=== PATIENT | male | born 1995 | race Caucasian/White ===

== ENCOUNTER 2017-11-18 22:08 | Emergency (ER) | payer OTHER ==
[2017-11-18] MEDS ORDERED: DIPHENHYDRAMINE 50 MG/ML VIAL ONE (23:10)
[2017-11-18] MEDS ORDERED: METOCLOPRAMIDE 10 MG/2mL INJ ONE (23:10)
[2017-11-18] MEDS ORDERED: NA CHLORIDE 0.9% 0 ML ONE (23:10)
[2017-11-18] MEDS ORDERED: KETOROLAC 30 MG/ML INJ ONE (23:10)
--- NOTE | 2017-11-19 00:35 | EDPHYS ---
Physician Documentation [facility] Name: Jamie Cortes Age: 22 yrs Sex: Male : 1995 Arrival Date: 11/18/2017 Time: 22:09 Bed 5 Private MD: Vinnie Casey ED Physician Ike Cordero HPI: 11/19 01:00 This 22 yrs old Male presents to ER via Ambulatory with complaints of pm1 Headache, Vomiting, SENSITIVE TO LIGHT AND SOUND. 01:00 The patient complains of pain to the forehead and left eye. The patient describes the pm1 headache as aching, constant. Onset: The symptoms/episode began/occurred 1 hour prior to arrival. Associated signs and symptoms: Pertinent positives: Photophobia vomiting, Pertinent negatives: dizziness, fever, rash, sinus congestion, sinus tenderness. Severity of symptoms: in the emergency department the pain is actually worse. Headache History: The patient has had previous headaches and this one is similar to previous episodes, and this one is more severe than previous episodes. The symptoms are alleviated by Darkened room, quiet, the symptoms are aggravated by lights, noise. The patient has experienced similar episodes in the past, a few times. The patient has not recently seen a physician. Historical: - Allergies: 11/18 22:29 No Known Allergies; lp1 - Home Meds: 22:29 None [Active]; lp1 - PMHx: 22:29 None; lp1 - PSHx: 22:29 Ear Tubes; lp1 - Immunization history:: Adult Immunizations up to date. - Social history:: Smoking status: Patient/guardian denies using tobacco. - Ebola Screening: : No symptoms or risks identified at this time. ROS: 11/19 01:00 Constitutional: Negative for fever, chills, and weight loss, Eyes: Negative for injury, pm1 pain, redness, and discharge, ENT: Negative for injury, pain, and discharge, Neck: Negative for injury, pain, and swelling, Cardiovascular: Negative for chest pain, palpitations, and edema, Respiratory: Negative for shortness of breath, cough, wheezing, and pleuritic chest pain, Abdomen/GI: Negative for abdominal pain, nausea, vomiting, diarrhea, and constipation, Back: Negative for injury and pain, : Negative for injury, bleeding, discharge, and swelling, MS/Extremity: Negative for injury and deformity, Skin: Negative for injury, rash, and discoloration. Neuro: Positive for headache, Negative for visual changes, weakness. Exam: 01:00 Constitutional: This is a well developed, well nourished patient who is awake, alert, pm1 and in no acute distress. Head/Face: Normocephalic, atraumatic. Eyes: Pupils equal round and reactive to light, extra-ocular motions intact. Lids and lashes normal. Conjunctiva and sclera are non-icteric and not injected. Cornea within normal limits. Periorbital areas with no swelling, redness, or edema. ENT: Nares patent. No nasal discharge, no septal abnormalities noted. Tympanic membranes are normal and external auditory canals are clear. Oropharynx with no redness, swelling, or masses, exudates, or evidence of obstruction, uvula midline. Mucous membranes moist. Neck: Trachea midline, no thyromegaly or masses palpated, and no cervical lymphadenopathy. Supple, full range of motion without nuchal rigidity, or vertebral point tenderness. No Meningismus. Chest/axilla: Normal chest wall appearance and motion. Nontender with no deformity. No lesions are appreciated. Cardiovascular: Regular rate and rhythm with a normal S1 and S2. No gallops, murmurs, or rubs. Normal PMI, no JVD. No pulse deficits. Respiratory: Lungs have equal breath sounds bilaterally, clear to auscultation and percussion. No rales, rhonchi or wheezes noted. No increased work of breathing, no retractions or nasal flaring. Abdomen/GI: Soft, non-tender, with normal bowel sounds. No distension or tympany. No guarding or rebound. No evidence of tenderness throughout. Back: No spinal tenderness. No costovertebral tenderness. Full range of motion. Skin: Warm, dry with normal turgor. Normal color with no rashes, no lesions, and no evidence of cellulitis. MS/ Extremity: Pulses equal, no cyanosis. Neurovascular intact. Full, normal range of motion. Neuro: Awake and alert, GCS 15, oriented to person, place, time, and situation. Cranial nerves II-XII grossly intact. Motor strength 5/5 in all extremities. Sensory grossly intact. Cerebellar exam normal. Normal gait. Vital Signs: 11/18 22:29 BP 136 / 106; Pulse 88; Resp 16; Temp 98.5(O); Pulse Ox 100% on R/A; Weight 81.65 kg; lp1 Height 5 ft. 8 in. (172.72 cm); Pain 8/10; 23:19 BP 123 / 83; Pulse 81; Resp 16; Pulse Ox 100% on R/A; Pain 1/10; lp1 11/19 00:30 BP 128 / 85; Pulse 85; Resp 16; Pulse Ox 99% on R/A; lp1 11/18 22:29 Body Mass Index 27.37 (81.65 kg, 172.72 cm) lp1 MDM: 11/18 22:59 Patient medically screened. pm1 11/19 00:00 ED course: Patient's headache completely resolved without medications. he refused pain pm1 medications. 00:34 ED course: CT head from V-rad: No acute findings.. pm1 00:34 Data reviewed: vital signs. Data interpreted: Pulse oximetry: on room air is 100 %. pm1 Interpretation: normal. Counseling: I had a detailed discussion with the patient and/or guardian regarding: the historical points, exam findings, and any diagnostic results supporting the discharge/admit diagnosis, radiology results, the need for outpatient follow up, to return to the emergency department if symptoms worsen or persist or if there are any questions or concerns that arise at home. 11/18 22:50 Order name: CT Head Brain wo Cont pm1 Administered Medications: 11/18 23:22 Not Given (Patient Refused): Benadryl 25 mg IVP once lp1 23:22 Not Given (Patient Refused): Reglan 10 mg IVP once; over 1 to 2 minutes lp1 23:22 Not Given (Patient Refused): TORadol 30 mg IVP once lp1 Disposition: 11/19 04:20 Co-signature as Attending Physician, Ike Cordero MD. rn Disposition: 11/19/17 00:35 Discharged to Home. Impression: Migraine. - Condition is Stable. - Discharge Instructions: Migraine Headache. - Work release form, Medication Reconciliation Form, Thank You Letter form. - Follow up: Emergency Department; When: As needed; Reason: Worsening of condition. Follow up: Private Physician; When: 2 - 3 days; Reason: Recheck today's complaints, Continuance of care, Re-evaluation by your physician. - Problem is new. - Symptoms have improved. Signatures: Dispatcher [employer] EDIke Engel MD MD rn BachSherin RN RN lp1 Timi Hurley, [employer] pm1 Corrections: (The following items were deleted from the chart) 11/18 23:22 23:00 IV Saline Lock ordered. pm1 lp1 11/19 00:35 00:35 11/19/2017 00:35 Discharged to Home. Impression: Headache. Condition is Stable. pm1 Forms are Medication Reconciliation Form, Thank You Letter, Antibiotic Education, Prescription Opioid Use. Follow up: Emergency Department; When: As needed; Reason: Worsening of condition. Follow up: Private Physician; When: 2 - 3 days; Reason: Recheck today's complaints, Continuance of care, Re-evaluation by your physician. Problem is new. Symptoms have improved. pm1 01:01 00:35 11/19/2017 00:35 Discharged to Home. Impression: Migraine. Condition is Stable. lp1 Discharge Instructions: Migraine Headache. Forms are Medication Reconciliation Form, Thank You Letter. Follow up: Emergency Department; When: As needed; Reason: Worsening of condition. Follow up: Private Physician; When: 2 - 3 days; Reason: Recheck today's complaints, Continuance of care, Re-evaluation by your physician. Problem is new. Symptoms have improved. pm1
--- NOTE | 2017-11-19 00:35 | ER ---
Nurse's Notes [facility] Name: Jamie Cortes Age: 22 yrs Sex: Male : 1995 Arrival Date: 11/18/2017 Time: 22:09 Bed 5 Private MD: Vinnie Casey Diagnosis: Migraine Presentation: 11/18 22:26 Presenting complaint: Patient states: Headache that began 1 hour ago, vomited x4-5, lp1 sensitivity to light and sound; Patient states numbness to left side of face on arrival to ED. Transition of care: patient was not received from another setting of care. Onset of symptoms was November 18, 2017 at 21:30. Risk Assessment: Do you want to hurt yourself or someone else? Patient reports no desire to harm self or others. Initial Sepsis Screen: Does the patient meet any 2 criteria? No. Patient's initial sepsis screen is negative. Does the patient have a suspected source of infection? No. Patient's initial sepsis screen is negative. Care prior to arrival: None. 22:26 Method Of Arrival: Ambulatory lp1 22:26 Acuity: DINA 3 lp1 Triage Assessment: 22:31 Headache History: The patient has had previous headaches and this one is more severe lp1 than previous episodes. 22:32 Pain: Also complains of nausea, photophobia, inability to work. lp1 Historical: - Allergies: 22:29 No Known Allergies; lp1 - Home Meds: 22:29 None [Active]; lp1 - PMHx: 22:29 None; lp1 - PSHx: 22:29 Ear Tubes; lp1 - Immunization history:: Adult Immunizations up to date. - Social history:: Smoking status: Patient/guardian denies using tobacco. - Ebola Screening: : No symptoms or risks identified at this time. Screenin:30 Abuse screen: Denies threats or abuse. Denies injuries from another. Nutritional lp1 screening: No deficits noted. Tuberculosis screening: No symptoms or risk factors identified. Fall Risk None identified. Assessment: 22:30 General: Appears uncomfortable, Behavior is appropriate for age. Pain: Complains of lp1 pain in head Pain currently is 8 out of 10 on a pain scale. Quality of pain is described as crushing, Pain began 1 hour ago. Neuro: Level of Consciousness is awake, alert, obeys commands, Oriented to person, place, time, situation, Gait is steady, Speech is normal, Facial symmetry appears normal, Pupils are PERRLA, Reports headache in left parietal area. Cardiovascular: Patient's skin is warm and dry. Respiratory: Respiratory effort is even, unlabored. GI: Reports nausea. : No signs and/or symptoms were reported regarding the genitourinary system. EENT: No signs and/or symptoms were reported regarding the EENT system. Derm: Skin is pink, warm \\T\\ dry. Musculoskeletal: Circulation, motion, and sensation intact. 23:18 Reassessment: On arrival into room, patient comfortable, denies pain, states "my lp1 headache is 98% gone"; Refusing IV meds and CT scan Patient denies pain at this time. Patient states feeling better. Patient states symptoms have improved. 23:21 Reassessment: Provider at bedside, patient agrees to do CT. lp1 11/19 00:30 Reassessment: Patient appears in no apparent distress at this time. Patient is alert, lp1 oriented x 3, equal unlabored respirations, skin warm/dry/pink. Patient denies pain at this time. Vital Signs: 11/18 22:29 BP 136 / 106; Pulse 88; Resp 16; Temp 98.5(O); Pulse Ox 100% on R/A; Weight 81.65 kg; lp1 Height 5 ft. 8 in. (172.72 cm); Pain 8/10; 23:19 BP 123 / 83; Pulse 81; Resp 16; Pulse Ox 100% on R/A; Pain 1/10; lp1 11/19 00:30 BP 128 / 85; Pulse 85; Resp 16; Pulse Ox 99% on R/A; lp1 11/18 22:29 Body Mass Index 27.37 (81.65 kg, 172.72 cm) lp1 ED Course: 11/18 22:09 Patient arrived in ED. es 22:14 Vinnie Casey MD is Private Physician. es 22:23 Timi Hurley NP is PHCP. pm1 22:23 Ike Cordero MD is Attending Physician. pm1 22:26 Sherin Bach, DOUGLAS is Primary Nurse. lp1 22:28 Triage completed. lp1 22:28 Arm band placed on left wrist. lp1 22:30 Patient has correct armband on for positive identification. Pulse ox on. NIBP on. lp1 23:19 No provider procedures requiring assistance completed. Patient did not have IV access lp1 during this emergency room visit. 23:37 CT Head Brain wo Cont In Process Unspecified. EDMS 23:[address] via wheelchair. kw1 Administered Medications: 23:22 Not Given (Patient Refused): Benadryl 25 mg IVP once lp1 23:22 Not Given (Patient Refused): Reglan 10 mg IVP once; over 1 to 2 minutes lp1 23:22 Not Given (Patient Refused): TORadol 30 mg IVP once lp1 Outcome: 11/19 00:35 Discharge ordered by MD. pm1 01:00 Discharged to home ambulatory, with family. lp1 01:00 Condition: good 01:00 Discharge instructions given to patient, Instructed on discharge instructions, follow up and referral plans. Demonstrated understanding of instructions, follow-up care. 01:01 Patient left the ED. lp1 Signatures: Dispatcher [employer] EDPattie Bob Laura RN RN lp1 Timi Hurley NP [employer] pm1 Elsie Dunn kw1 Corrections: (The following items were deleted from the chart) 11/18 23:17 23:[address] via wheelchair. kw1 kw1
--- NOTE | 2017-11-19 08:58 | RAD REPORT ---
EXAM DESCRIPTION: CT - Head Brain Wo Cont - 11/19/2017 3:59 am CLINICAL HISTORY: Headache, vomiting A preliminary written report was provided at the time of the study, and the report was reviewed prio r to final dictation. COMPARISON: None. TECHNIQUE: Axial 5 mm thick images of the head were obtained without IV contrast. All CT scans are performed using dose optimization technique as appropriate and may include automated exposure control or mA/KV adjustment according to patient size. FINDINGS: No intracranial hemorrhage, mass, edema or shift of mid-line structures. No acute infarcti on changes seen. No abnormal extra-axial fluid collections. Ventricles are normal. Mastoid air cells and visualized portions of the paranasal sinuses are clear. No acute bony findings. IMPRESSION: Negative non-contrast CT head examination.
== END 2017-11-19 01:01 | disposition home or self-care (01) ==
LOC: ER 22:08
DX: G43.909 Migraine, unspecified, not intractable, without status migrainosus (principal)
CPT/HCPCS: 70450; 99284; J2765; J7030

== ENCOUNTER 2019-04-20 07:28 | Emergency (ER) | payer OTHER ==
[2019-04-20] MEDS ORDERED: AZITHROMYCIN 250 MG TAB ONE (07:58)
[2019-04-20] MEDS ORDERED: dexAMETHasone 10 MG/ML VIAL ONE (07:58)
--- NOTE | 2019-04-20 08:03 | EDPHYS ---
Physician Documentation [facility] Name: Jamie Cortes Age: 24 yrs Sex: Male : 1995 Arrival Date: 04/20/2019 Time: 07:32 Bed 6 Private MD: ED Physician Mahendra Garcia HPI: 04/20 07:54 This 24 yrs old Male presents to ER via Ambulatory with complaints of jennifer Breathing Difficulty, Dizziness. 07:54 The patient has shortness of breath at rest, with light activity. Onset: The jennifer symptoms/episode began/occurred 2 day(s) ago. Duration: The symptoms are intermittent, with episodes lasting minutes at a time. The patient's shortness of breath is aggravated by coughing, SNORING. Associated signs and symptoms: The patient has no apparent associated signs or symptoms. Severity of symptoms: At their worst the symptoms were mild in the emergency department the symptoms are unchanged. The patient has not experienced similar symptoms in the past. Historical: - Allergies: 07:48 No Known Allergies; ss - Home Meds: 07:48 None [Active]; ss - PMHx: 07:48 Anxiety; ADD/ADHD; ss - PSHx: 07:48 Ear Tubes; ss - Immunization history:: Adult Immunizations up to date. - Social history:: Smoking status: Patient/guardian denies using tobacco. - Ebola Screening: : Patient denies exposure to infectious person Patient denies travel to an Ebola-affected area in the 21 days before illness onset. - Family history:: not pertinent. ROS: 07:54 Constitutional: Negative for fever, chills, and weight loss, Eyes: Negative for injury, jennifer pain, redness, and discharge, Neck: Negative for injury, pain, and swelling, Cardiovascular: Negative for chest pain, palpitations, and edema, Respiratory: Negative for shortness of breath, cough, wheezing, and pleuritic chest pain, Abdomen/GI: Negative for abdominal pain, nausea, vomiting, diarrhea, and constipation, Back: Negative for injury and pain, : Negative for injury, bleeding, discharge, and swelling, MS/Extremity: Negative for injury and deformity, Skin: Negative for injury, rash, and discoloration, Neuro: Negative for headache, weakness, numbness, tingling, and seizure, Psych: Negative for depression, anxiety, suicide ideation, homicidal ideation, and hallucinations, Allergy/Immunology: Negative for hives, rash, and allergies, Endocrine: Negative for neck swelling, polydipsia, polyuria, polyphagia, and marked weight changes, Hematologic/Lymphatic: Negative for swollen nodes, abnormal bleeding, and unusual bruising. Exam: 07:54 Constitutional: This is a well developed, well nourished patient who is awake, alert, jennifer and in no acute distress. Head/Face: Normocephalic, atraumatic. Eyes: Pupils equal round and reactive to light, extra-ocular motions intact. Lids and lashes normal. Conjunctiva and sclera are non-icteric and not injected. Cornea within normal limits. Periorbital areas with no swelling, redness, or edema. Neck: Trachea midline, no thyromegaly or masses palpated, and no cervical lymphadenopathy. Supple, full range of motion without nuchal rigidity, or vertebral point tenderness. No Meningismus. Chest/axilla: Normal chest wall appearance and motion. Nontender with no deformity. No lesions are appreciated. Cardiovascular: Regular rate and rhythm with a normal S1 and S2. No gallops, murmurs, or rubs. Normal PMI, no JVD. No pulse deficits. Respiratory: Lungs have equal breath sounds bilaterally, clear to auscultation and percussion. No rales, rhonchi or wheezes noted. No increased work of breathing, no retractions or nasal flaring. Abdomen/GI: Soft, non-tender, with normal bowel sounds. No distension or tympany. No guarding or rebound. No evidence of tenderness throughout. Back: No spinal tenderness. No costovertebral tenderness. Full range of motion. Skin: Warm, dry with normal turgor. Normal color with no rashes, no lesions, and no evidence of cellulitis. MS/ Extremity: Pulses equal, no cyanosis. Neurovascular intact. Full, normal range of motion. Neuro: Awake and alert, GCS 15, oriented to person, place, time, and situation. Cranial nerves II-XII grossly intact. Motor strength 5/5 in all extremities. Sensory grossly intact. Cerebellar exam normal. Normal gait. Psych: Awake, alert, with orientation to person, place and time. Behavior, mood, and affect are within normal limits. 07:54 ENT: Posterior pharynx: Tonsils: with erythema, Uvula: edematous, erythema, swelling, that is mild, erythema, that is mild, exudate, is not appreciated. Vital Signs: 07:48 BP 127 / 91; Pulse 83; Resp 18; Pulse Ox 97% on R/A; Weight 81.65 kg; Height 5 ft. 8 ss in. (172.72 cm); Pain 0/10; 07:59 Temp 98.1(TE); ss 08:24 BP 124 / 87; Pulse 80; Resp 18; Temp 97.9; Pulse Ox 98% on R/A; ph 07:48 Body Mass Index 27.37 (81.65 kg, 172.72 cm) ss MDM: 07:34 Patient medically screened. [facility] 07:59 Data reviewed: vital signs, nurses notes. [facility] 04/20 07:54 Order name: PO challenge; Complete Time: 08:05 [facility] Administered Medications: 08:04 Drug: Decadron 10 mg Route: IM; Site: right deltoid; ph 08:25 Follow up: Response: No adverse reaction ph 08:05 Drug: Zithromax 500 mg Route: PO; ph 08:25 Follow up: Response: No adverse reaction ph Disposition: 04/20/19 08:02 Discharged to Home. Impression: Acute pharyngitis, Apnea, not elsewhere classified. - Condition is Stable. - Discharge Instructions: Pharyngitis, Pharyngitis, [id number], Sore Throat, [id number]. - Prescriptions for Ibuprofen 600 mg Oral Tablet - take 1 tablet by ORAL route every 6 hours As needed take with food; 30 tablet. Pepcid 20 mg Oral Tablet - take 1 tablet by ORAL route every 12 hours for 10 days; 20 tablet. Prednisone 20 mg Oral Tablet - take 2 tablet by ORAL route once daily for 5 days; 10 tablet. Zithromax 500 mg Oral Tablet - take 1 tablet by ORAL route once daily for 5 days; 5 tablet. - Work release form, Medication Reconciliation Form, Thank You Letter, Antibiotic Education, Prescription Opioid Use form. - Follow up: Private Physician; When: 2 - 3 days; Reason: Recheck today's complaints, Continuance of care, Re-evaluation by your physician. Follow up: Erick Rouse MD; When: 2 - 3 days; Reason: Recheck today's complaints, Re-evaluation by your physician. - Problem is new. - Symptoms have improved. Signatures: Mahendra Garcia MD MD cha Smirch, Shelby, RN RN Ketty Flores RN RN ph Corrections: (The following items were deleted from the chart) 08:04 08:02 04/20/2019 08:02 Discharged to Home. Impression: Acute pharyngitis. Condition is jennifer Stable. Forms are Work release form, Medication Reconciliation Form, Thank You Letter, Antibiotic Education, Prescription Opioid Use. Follow up: Private Physician; When: 2 - 3 days; Reason: Recheck today's complaints, Continuance of care, Re-evaluation by your physician. Problem is new. Symptoms have improved. [facility] 08:04 08:04 04/20/2019 08:02 Discharged to Home. Impression: Acute pharyngitis; Apnea, not jennifer elsewhere classified. Condition is Stable. Discharge Instructions: Pharyngitis, Pharyngitis, [id number], Sore Throat, [id number]. Prescriptions for Ibuprofen 600 mg Oral Tablet - take 1 tablet by ORAL route every 6 hours As needed take with food; 30 tablet, Pepcid 20 mg Oral Tablet - take 1 tablet by ORAL route every 12 hours for 10 days; 20 tablet, Prednisone 20 mg Oral Tablet - take 2 tablet by ORAL route once daily for 5 days; 10 tablet, Zithromax 500 mg Oral Tablet - take 1 tablet by ORAL route once daily for 5 days; 5 tablet. and Forms are Work release form, Medication Reconciliation Form, Thank You Letter, Antibiotic Education, Prescription Opioid Use. Follow up: Private Physician; When: 2 - 3 days; Reason: Recheck today's complaints, Continuance of care, Re-evaluation by your physician. Problem is new. Symptoms have improved. [facility] 08:25 08:04 04/20/2019 08:02 Discharged to Home. Impression: Acute pharyngitis; Apnea, not ph elsewhere classified. Condition is Stable. Discharge Instructions: Pharyngitis, Pharyngitis, [id number], Sore Throat, [id number]. Prescriptions for Ibuprofen 600 mg Oral Tablet - take 1 tablet by ORAL route every 6 hours As needed take with food; 30 tablet, Pepcid 20 mg Oral Tablet - take 1 tablet by ORAL route every 12 hours for 10 days; 20 tablet, Prednisone 20 mg Oral Tablet - take 2 tablet by ORAL route once daily for 5 days; 10 tablet, Zithromax 500 mg Oral Tablet - take 1 tablet by ORAL route once daily for 5 days; 5 tablet. and Forms are Work release form, Medication Reconciliation Form, Thank You Letter, Antibiotic Education, Prescription Opioid Use. Follow up: Private Physician; When: 2 - 3 days; Reason: Recheck today's complaints, Continuance of care, Re-evaluation by your physician. Follow up: Erick Rouse; When: 2 - 3 days; Reason: Recheck today's complaints, Re-evaluation by your physician. Problem is new. Symptoms have improved. jennifer
--- NOTE | 2019-04-20 08:03 | ER ---
Nurse's Notes [facility] [place] Name: Jamie Cortes Age: 24 yrs Sex: Male : 1995 Arrival Date: 04/20/2019 Time: 07:32 Bed 6 Private MD: Diagnosis: Acute pharyngitis;Apnea, not elsewhere classified Presentation: 04/20 07:41 Presenting complaint: Mother states: Uvula swollen and stuck on side of throat that ss began at 0630 today. Pt reports this is an ongoing issue and has been happening more and more as he has had 3 episodes this year already. Also been having more panic attacks that are now unprovoked. Mother reports they are trying to get patient on medication for this. Denies fever. Transition of care: patient was not received from another setting of care. Onset of symptoms was April 20, 2019. Risk Assessment: Do you want to hurt yourself or someone else? Patient reports no desire to harm self or others. Initial Sepsis Screen: Does the patient meet any 2 criteria? No. Patient's initial sepsis screen is negative. Does the patient have a suspected source of infection? No. Patient's initial sepsis screen is negative. Care prior to arrival: None. 07:41 Method Of Arrival: Ambulatory ss 07:41 Acuity: DINA 3 ss Historical: - Allergies: 07:48 No Known Allergies; ss - Home Meds: 07:48 None [Active]; ss - PMHx: 07:48 Anxiety; ADD/ADHD; ss - PSHx: 07:48 Ear Tubes; ss - Immunization history:: Adult Immunizations up to date. - Social history:: Smoking status: Patient/guardian denies using tobacco. - Ebola Screening: : Patient denies exposure to infectious person Patient denies travel to an Ebola-affected area in the 21 days before illness onset. - Family history:: not pertinent. Screenin:47 Abuse screen: Denies threats or abuse. Denies injuries from another. Nutritional ph screening: No deficits noted. Tuberculosis screening: No symptoms or risk factors identified. Fall Risk None identified. Assessment: 07:52 General: Appears in no apparent distress. comfortable, Behavior is cooperative, ph appropriate for age, Denies fever. Pain: Complains of pain in throat. Neuro: Level of Consciousness is awake, alert, obeys commands, Oriented to person, place, time, situation. Cardiovascular: Capillary refill < 3 seconds in bilateral fingers Patient's skin is warm and dry. Respiratory: Airway is compromised Respiratory effort is even, unlabored, Respiratory pattern is regular, symmetrical, Breath sounds are clear bilaterally. Denies cough. GI: No signs and/or symptoms were reported involving the gastrointestinal system. EENT: Throat is reddened swelling noted to uvula. Derm: Skin is intact, Skin is pink, warm \T\ dry. Musculoskeletal: Circulation, motion, and sensation intact. Range of motion: intact in all extremities. 08:23 Reassessment: Patient appears in no apparent distress at this time. Patient and/or ph family updated on plan of care and expected duration. Pain level reassessed. Patient is alert, oriented x 3, equal unlabored respirations, skin warm/dry/pink. Pt d/c home w/ family, instructed in medication usage and to follow up w/ ENT and pulmonary. Vital Signs: 07:48 BP 127 / 91; Pulse 83; Resp 18; Pulse Ox 97% on R/A; Weight 81.65 kg; Height 5 ft. 8 ss in. (172.72 cm); Pain 0/10; 07:59 Temp 98.1(TE); ss 08:24 BP 124 / 87; Pulse 80; Resp 18; Temp 97.9; Pulse Ox 98% on R/A; ph 07:48 Body Mass Index 27.37 (81.65 kg, 172.72 cm) ED Course: 07:32 Patient arrived in ED. ag5 07:33 Mahendra Garcia MD is Attending Physician. jennifer 07:41 Ketty Flores, DOUGLAS is Primary Nurse. ph 07:47 Triage completed. ss 07:48 Arm band placed on Patient placed in an exam room. ph 07:48 Patient has correct armband on for positive identification. Bed in low position. Call ph light in reach. Side rails up X 1. Pulse ox on. NIBP on. Door closed. Noise minimized. 08:04 Erick Rouse MD is Referral Physician. jennifer 08:24 No provider procedures requiring assistance completed. Patient did not have IV access ph during this emergency room visit. Administered Medications: 08:04 Drug: Decadron 10 mg Route: IM; Site: right deltoid; ph 08:25 Follow up: Response: No adverse reaction ph 08:05 Drug: Zithromax 500 mg Route: PO; ph 08:25 Follow up: Response: No adverse reaction ph Outcome: 08:02 Discharge ordered by . jennifer 08:25 Discharged to home ambulatory, with family. ph 08:25 Condition: good 08:25 Discharge instructions given to patient, Instructed on discharge instructions, follow up and referral plans. medication usage, Demonstrated understanding of instructions, follow-up care, medications, Prescriptions given X 4. 08:25 Patient left the ED. ph Signatures: Mahendra Garcia MD MD cha Smirch, Shelby, RN RN Ketty Gordillo RN RN annabelle Coto, Teodora ag5
[2019-04-20 11:08] VITALS: BP 124/87; TEMP 97.9; O2SAT 98
== END 2019-04-20 08:25 | disposition home or self-care (01) ==
LOC: ER 07:28
DX: R06.81 Apnea, not elsewhere classified (principal); J02.9 Acute pharyngitis, unspecified
CPT/HCPCS: 96372; 99283; J1100

== ENCOUNTER 2020-11-19 15:08 | Emergency (ER) | payer OTHER ==
[2020-11-19 18:03] LABS: Urine Blood Trace-lysed (Negative); Urine Glucose Negative (Negative); Urine Protein Negative (Negative); Urine Specific Gravity 1.025 (1.005-1.030); Urine pH 6.5 (5.0-7.0)
[2020-11-19 18:17] LABS: Urine Bacteria <20 /HPF (NONE SEEN); Urine RBC <5 /HPF (NONE SEEN)
[2020-11-19] MEDS ORDERED: KETOROLAC 30 MG/ML INJ ONE (18:36)
[2020-11-19] MEDS ORDERED: ONDANSETRON 4 MG/2 ML VIAL ONE (18:36)
[2020-11-19 19:13] LABS: Absolute Lymphocytes (CBC) 2.3 K/uL (0.7-4.9); Basophils % 1.1 % (0-1.3); Hematocrit 45.7 % (39.6-49.0); Lymphocytes % 27.9 % (15.3-44.8); MPV 7.6 fL (7.6-11.3); RBC Red Blood Cell Count 5.49 M/uL (4.33-5.43)
[2020-11-19] MEDS ORDERED: HYDROCODONE/APAP 7.5/325 MG TAB ONE (19:25)
[2020-11-19 19:31] LABS: ALT/SGPT 36 U/L (12-78); AST/SGOT 12 U/L (15-37); Albumin 3.9 g/dL (3.4-5.0); Alkaline Phosphatase 69 U/L (45-117); BUN Blood Urea Nitrogen 15 mg/dL (7-18); Bicarbonate 30 mmol/L (21-32); Bilirubin Direct < 0.1 mg/dL (0-0.2); Bilirubin Total 0.4 mg/dL (0.2-1.0); Glucose Level 84 mg/dL (74-106); Lipase 79 U/L (73-393); Potassium 4.2 mmol/L (3.5-5.1); Protein, Total 7.1 g/dL (6.4-8.2); Sodium Level 142 mmol/L (136-145)
--- NOTE | 2020-11-19 19:37 | RAD REPORT ---
EXAM DESCRIPTION: US - Scrotum Testicles - 11/19/2020 7:18 pm CLINICAL HISTORY: Testicular pain COMPARISON: None FINDINGS: Right testicle measures 4.3 x 2.4 x 2.5 centimeters. Echotexture is homogeneous. Normal bl ood flow Left testicle measures 4 x 2.3 x 2.6 centimeters. Echotexture is homogeneous. Normal blood flow The epididymides are normal in size and echotexture. Normal blood flow is seen. IMPRESSION: Unremarkable exam
--- NOTE | 2020-11-19 19:59 | ER ---
Nurse's Notes [facility] Name: Jamie Cortes Age: 25 yrs Sex: Male : 1995 Arrival Date: 11/19/2020 Time: 15:09 Bed 12 Private MD: Diagnosis: Unilateral inguinal hernia, without obstruction or gangrene, not specified as recurrent;Umbilical hernia without obstruction or gangrene Presentation: 11/19 15:53 Chief complaint: Patient states: LLQ abdominal pain, radiates to left testicle x 5 jl7 days, had a CT yesterday and it reported kidney stone and inguinal hernia, PCP sent to ER for further evaluation because the CT report might not say everything. Coronavirus screen: Client denies travel out of the [place] in the last 14 days. At this time, the client does not indicate any symptoms associated with coronavirus-19. Ebola Screen: No symptoms or risks identified at this time. Initial Sepsis Screen: Does the patient meet any 2 criteria? No. Patient's initial sepsis screen is negative. Does the patient have a suspected source of infection? No. Patient's initial sepsis screen is negative. Risk Assessment: Do you want to hurt yourself or someone else? Patient reports no desire to harm self or others. Onset of symptoms was November 14, 2020. Care prior to arrival: None. 15:53 Method Of Arrival: Ambulatory [facility] 15:53 Acuity: DINA 3 jl7 Triage Assessment: 15:57 General: Appears in no apparent distress. uncomfortable, Behavior is cooperative, jl7 anxious. Pain: Complains of pain in left inguinal area Pain currently is 6 out of 10 on a pain scale. Historical: - Allergies: 15:57 No Known Allergies; jl7 - PMHx: 15:57 ADD/ADHD; Anxiety; jl7 - Immunization history:: Adult Immunizations up to date, Client reports having NOT received the Covid vaccine. - Social history:: Smoking status: Patient denies any tobacco usage or history of. Screenin:45 Abuse screen: Denies threats or abuse. Denies injuries from another. Nutritional ld1 screening: No deficits noted. Tuberculosis screening: No symptoms or risk factors identified. Fall Risk None identified. Assessment: 17:45 General: Appears in no apparent distress. comfortable, Behavior is calm, cooperative, ld1 appropriate for age. Pain: Complains of pain in right lower quadrant Pain radiates to groin Pain currently is 7 out of 10 on a pain scale. Quality of pain is described as throbbing, Pain began 2-3 days ago. Is continuous. Neuro: Level of Consciousness is awake, alert, obeys commands, Oriented to person, place, time, situation. Cardiovascular: Capillary refill < 3 seconds Patient's skin is warm and dry. Respiratory: Airway is patent Respiratory effort is even, unlabored, Respiratory pattern is regular, symmetrical. GI: Abdomen is flat, non-distended, Reports lower abdominal pain. : Reports pain testicle. EENT: No signs and/or symptoms were reported regarding the EENT system. Derm: No signs and/or symptoms reported regarding the dermatologic system. Musculoskeletal: No signs and/or symptoms reported regarding the musculoskeletal system. 18:50 Reassessment: Patient appears in no apparent distress at this time. No changes from ld1 previously documented assessment. Patient and/or family updated on plan of care and expected duration. Pain level reassessed. Patient is alert, oriented x 3, equal unlabored respirations, skin warm/dry/pink. 19:51 Reassessment: Patient appears in no apparent distress at this time. No changes from ld1 previously documented assessment. Patient and/or family updated on plan of care and expected duration. Pain level reassessed. Patient is alert, oriented x 3, equal unlabored respirations, skin warm/dry/pink. Vital Signs: 15:53 BP 139 / 98; Pulse 94; Resp 15; Temp 97.9; Pulse Ox 99% ; Weight 95.71 kg; Height 5 ft. jl7 8 in. (172.72 cm); Pain 6/10; 17:45 BP 136 / 99; Pulse 90; Resp 18; Temp 98.2(O); Pulse Ox 100% on R/A; Pain 7/10; ld1 18:50 BP 138 / 86; Pulse 82; Resp 18; Pulse Ox 100% ; ld1 15:53 Body Mass Index 32.08 (95.71 kg, 172.72 cm) jl7 ED Course: 15:09 Patient arrived in ED. as 15:57 Triage completed. jl7 15:57 Arm band placed on right wrist. jl7 17:32 Mahendra Ryder PA is PHCP. cp 17:32 Buster Crane MD is Attending Physician. cp 17:34 Tamia Hogan, RN is Primary Nurse. iw 17:45 Patient has correct armband on for positive identification. Bed in low position. Call ld1 light in reach. Side rails up X2. Pulse ox on. NIBP on. 17:45 No provider procedures requiring assistance completed. ld1 19:17 US Scrotum Testicles In Process Unspecified. EDMS 19:58 Peter Lowe MD is Referral Physician. cp 20:09 IV discontinued, intact, bleeding controlled, No redness/swelling at site. ld1 Administered Medications: 19:03 Drug: Ketorolac 15 mg Route: IVP; Site: right antecubital; ld1 19:03 Drug: Zofran (Ondansetron) 4 mg Route: IVP; Site: right antecubital; ld1 19:08 Drug: Hydrocodone-Acetaminophen (7.5 mg-325 mg) 1 tabs Route: PO; ld1 Outcome: 19:59 Discharge ordered by . cp 20:09 Discharged to home ambulatory. ld1 20:09 Condition: stable 20:09 Discharge instructions given to patient, family, Instructed on discharge instructions, follow up and referral plans. medication usage, Demonstrated understanding of instructions, follow-up care, medications. 20:09 Patient left the ED. ld1 Signatures: Dispatcher [employer] EDMS Angela Arriola as Tamia Hogan, RN RN iw Mahendra Ryder PA PA cp Erin Asher, RN DOUGLAS jl7 Sheri Pollock RN RN ld1
--- NOTE | 2020-11-19 19:59 | EDPHYS ---
Physician Documentation [facility] Name: Jamie Cortes Age: 25 yrs Sex: Male : 1995 Arrival Date: 11/19/2020 Time: 15:09 Bed 12 Private MD: ED Physician Buster Crane HPI: 11/19 17:40 This 25 yrs old Male presents to ER via Ambulatory with complaints of kidney cp stone/hernia. 17:40 The patient presents with tenderness, that is moderate, of the left testicle. Onset: cp The symptoms/episode began/occurred 5 day(s) ago. Patient reports pain radiates from left testicle/groin into left side of abdomen and back that started 5 days ago. Patient reports pain may be due to helping friend move heavy aquarium. Patient reports he was seen at clinic yesterday and CT abdomen performed that show umbilical hernia, left inguinal hernia and kidney stone. Patient reports he came to ED due to concern something else may be causing pain. Historical: - Allergies: 15:57 No Known Allergies; jl7 - PMHx: 15:57 ADD/ADHD; Anxiety; jl7 - Immunization history:: Adult Immunizations up to date, Client reports having NOT received the Covid vaccine. - Social history:: Smoking status: Patient denies any tobacco usage or history of. ROS: 17:45 : Positive for flank pain, testicular pain Negative for urinary symptoms, penile pain.cp 17:45 Eyes: Negative for injury, pain, redness, and discharge. cp 17:45 Constitutional: Negative for body aches, chills, fever, poor PO intake. 17:45 ENT: Negative for ear pain, sore throat, difficulty swallowing, difficulty handling secretions. 17:45 Cardiovascular: Negative for chest pain, palpitations. 17:45 Respiratory: Negative for cough, shortness of breath, wheezing. 17:45 Abdomen/GI: Negative for abdominal pain, nausea, vomiting, and diarrhea. 17:45 Skin: Negative for rash. 17:45 Neuro: Negative for altered mental status, headache, weakness. 17:45 All other systems are negative. Exam: 17:50 Constitutional: The patient appears in no acute distress, alert, awake, non-toxic, well cp developed, well nourished, uncomfortable. 17:50 Head/Face: Normocephalic, atraumatic. cp 17:50 Eyes: Periorbital structures: appear normal, Conjunctiva: normal, no exudate, no injection, Sclera: no appreciated abnormality, Lids and lashes: appear normal, bilaterally. 17:50 ENT: External ear(s): are unremarkable, Nose: is normal, Mouth: Lips: moist, Oral mucosa: moist, Posterior pharynx: Airway: no evidence of obstruction, patent. 17:50 Neck: ROM/movement: is normal, is supple, without pain, no range of motions limitations. 17:50 Chest/axilla: Inspection: normal, Palpation: is normal, no crepitus, no tenderness. 17:50 Cardiovascular: Rate: normal, Rhythm: regular. 17:50 Respiratory: the patient does not display signs of respiratory distress, Respirations: normal, no use of accessory muscles, no retractions, labored breathing, is not present, Breath sounds: are clear throughout, no decreased breath sounds, no stridor, no wheezing. 17:50 Abdomen/GI: Inspection: abdomen appears normal, Bowel sounds: active, all quadrants, Palpation: soft, in all quadrants, moderate abdominal tenderness, in the anterior aspect of left lateral abdomen, posterior aspect of left lateral abdomen and left lower quadrant, rebound tenderness, is not appreciated, voluntary guarding, is elicited in the anterior aspect of left lateral abdomen, posterior aspect of left lateral abdomen and left lower quadrant. 17:50 Skin: no rash present. Vital Signs: 15:53 BP 139 / 98; Pulse 94; Resp 15; Temp 97.9; Pulse Ox 99% ; Weight 95.71 kg; Height 5 ft. jl7 8 in. (172.72 cm); Pain 6/10; 17:45 BP 136 / 99; Pulse 90; Resp 18; Temp 98.2(O); Pulse Ox 100% on R/A; Pain 7/10; ld1 18:50 BP 138 / 86; Pulse 82; Resp 18; Pulse Ox 100% ; ld1 15:53 Body Mass Index 32.08 (95.71 kg, 172.72 cm) jl7 MDM: 17:34 Patient medically screened. cp 19:59 Data reviewed: vital signs, nurses notes, lab test result(s), radiologic studies, cp ultrasound, reviewed results of CT abdomen/pelvis dated 11-18-2020 that showed small fat containing hernias of umbilicus and left inguinal area, calculus of left kidney w/o obstruction and/or hydronephrosis. 19:59 Counseling: I had a detailed discussion with the patient and/or guardian regarding: the cp historical points, exam findings, and any diagnostic results supporting the discharge/admit diagnosis, lab results, radiology results, the need for outpatient follow up, for definitive care, a general surgeon, to return to the emergency department if symptoms worsen or persist or if there are any questions or concerns that arise at home. Physician consultation: Peter Lowe MD was called at 19:50, was contacted at 19:50, regarding consult, patient's condition, and will see patient in office, tomorrow. ED course: VSS. Pain improved with meds. Will discharge to home for continued monitoring. 11/19 17:35 Order name: Urine Microscopic Only; Complete Time: 19:12 cp 11/19 18:03 Order name: Urine Dipstick-Ancillary; Complete Time: 18:04 EDMS 11/19 18:04 Order name: Basic Metabolic Panel; Complete Time: 19:47 cp 11/19 18:04 Order name: CBC with Diff; Complete Time: 19:31 cp 11/19 18:04 Order name: Hepatic Function; Complete Time: 19:47 cp 11/19 18:04 Order name: Lipase; Complete Time: 19:47 cp 11/19 17:35 Order name: Urine Dipstick-Ancillary (obtain specimen); Complete Time: 18:03 cp 11/19 18:04 Order name: IV Saline Lock; Complete Time: 19:08 cp 11/19 18:04 Order name: Labs collected and sent; Complete Time: 19:08 cp 11/19 18:39 Order name: US Scrotum Testicles; Complete Time: 19:47 cp Administered Medications: 19:03 Drug: Ketorolac 15 mg Route: IVP; Site: right antecubital; ld1 19:03 Drug: Zofran (Ondansetron) 4 mg Route: IVP; Site: right antecubital; ld1 19:08 Drug: Hydrocodone-Acetaminophen (7.5 mg-325 mg) 1 tabs Route: PO; ld1 Disposition Summary: 11/19/20 19:59 Discharge Ordered Location: Home cp Problem: new cp Symptoms: have improved cp Condition: Stable cp Diagnosis - Unilateral inguinal hernia, without obstruction or gangrene, not specified as cp recurrent - Umbilical hernia without obstruction or gangrene cp Followup: cp - With: Peter Lowe MD - When: Tomorrow - Reason: Recheck today's complaints Discharge Instructions: - Discharge Summary Sheet cp - Inguinal Hernia, Adult cp - Umbilical Hernia, Adult cp Forms: - Medication Reconciliation Form cp - Thank You Letter cp - Antibiotic Education cp - Prescription Opioid Use cp Prescriptions: - Tramadol 50 mg Oral Tablet - take 1 tablet by ORAL route every 8 hours as needed; 20 tablet; Refills: 0, cp Product Selection Permitted Addendum: 11/20/2020 21:51 Co-signature as Attending Physician, Buster Crane MD I agree with the assessment and k dr plan of care. Signatures: Dispatcher [employer] EDMS Buster Crane MD MD kdr Page, Corey, PA PA cp Leal, Jahala, RN RN jl7 Sheri Pollock RN RN ld1
[2020-11-19 20:15] VITALS: TEMP 98.2; O2SAT 100
[2020-11-19 20:17] VITALS: BP 138/86
== END 2020-11-19 20:09 | disposition home or self-care (01) ==
LOC: ER 15:08
DX: K40.90 Unilateral inguinal hernia, without obstruction or gangrene, not specified as recurrent (principal); K42.9 Umbilical hernia without obstruction or gangrene
CPT/HCPCS: 85025; 80048; 36415; 80076; 83690; 76870; 96375; 96374; 99283; J2405; 81003; 81015

== ENCOUNTER 2020-12-11 06:34 | Day surgery (SDC) | payer OTHER ==
[2020-12-11] MEDS ORDERED: Ringers Lactate 1,000 ML IV ONE (07:06)
[2020-12-11] MEDS ORDERED: propofoL 200 MG/20 ML VIAL IV ONE (07:28)
[2020-12-11] MEDS ORDERED: FENTANYL CITR 100 MCG/2 ML ONE ×2 (07:28→09:32)
[2020-12-11] MEDS ORDERED: LIDOCAINE 2% MPF 5 ML VIAL ONE (07:29)
[2020-12-11] MEDS ORDERED: MIDAZOLAM HCL 2 MG/2 ML INJ ONE (07:29)
[2020-12-11] MEDS ORDERED: ONDANSETRON 4 MG/2 ML VIAL ONE ×2 (07:30→11:43)
[2020-12-11] MEDS ORDERED: ROCURONIUM 50 MG/5 ML VIAL IV ONE ×2 (07:31→10:03)
[2020-12-11] MEDS ORDERED: NEOSTIGMINE 1 MG/ML -5 ML ONE (07:31)
[2020-12-11] MEDS ORDERED: GLYCOPYRROLATE 0.2 MG/ML SYR ONE (07:31)
[2020-12-11] MEDS: CEFAZOLIN/SWI 1gm 1 GM/10 ML SYR ONE ×2 (08:55→09:27)
--- NOTE | 2020-12-11 08:58 | P.HP ---
Date of Service: 12/11/20 PC: This 25-year-old male presents for elective laparoscopic hernia repair bilaterally with mesh HPC: Patient experienced severe left lower abdominal pain with a bulge in that area a few weeks ago. He presented to the emergency room. The hernia was reduced and he was discharged. The pain has since settled down, he has not had had any episodes where the hernia has become incarcerated. He comes in now for bilateral repairs. PSHx: Negative PMHx: No medical problems Social Hx: No known allergies, does not smoke Sys R: No cough, wheeze, shortness of breath. No chest pain or palpitations. Denies any urinary complaints. O/E: Awake alert vital signs are stable HEENT: Within normal limits Chest: Air entry equal bilaterally Abd: Has a large left and smaller right inguinal hernia. They are currently reducible. [place]: Intact Data: NAD Impression: Left possible right inguinal hernia, reducible Plan: I will take him to the operating room for laparoscopic repair of his bilateral inguinal hernias with mesh. The risks of this procedure have been discussed. The possibility of bleeding, infection, injury to bowel blood vessels the vas deferens have been described. Bleeding infection need for further surgeries were outlined. Possible recurrence and ongoing pain were explained. He understands and wants us to proceed.
--- NOTE | 2020-12-11 10:32 | P.OP ---
Preoperative diagnosis: Bilateral inguinal hernias Postoperative diagnosis: The same [indirect] Primary procedure: Laparoscopic hernia repair with mesh x2 Anesthesia: General Estimated blood loss: Less than 10 cc Specimen: None sent Findings: Left and right indirect inguinal hernias Operative Technique: The patient was brought the operating room and placed supine on the table. Afte r the induction of adequate general endotracheal anesthesia, the area of the abdomen and perineum was prepped with a Betadine solution, and he was draped in usual aseptic manner. A Hugo catheter had been inserted under sterile technique. A subumbilical incision was made. This was brought down through the skin and subcutaneous tissue. The fascia over the rectus muscle was identified. The balloon dissector was now inserted at this point and passed down towards the pubic symphysis where it was inflated. Having created this preperitoneal space, the dissecting balloon was removed and the structural balloon left in place. The structural balloon was now inflated. The patient was now placed in Trendelenburg, and the preperitoneal space was inflated to a pressure approximately 12 mmHg. Under direct vision 2 5 mm trochars were placed in the lower midline. We were now able to view the left and right portions of the anterior abdominal wall. Attention was turned towards the right side first. On the right side we could see the spermatic cord. There was a corresponding hernia sac to standing left to this. This was dissected off of the spermatic cord as well as a very large lipoma of the cord. The peritoneum was dissected well back into the peritoneal cavity, and hemostasis was ensured. Attention was now turned towards the left side. On the left there was a larger indirect in guinal hernia associated with the cord. This was dissected off this cord structure well back into the peritoneal cavity itself. The lipoma of the cord on this side was also dealt with in the usual manner dissected free and left in the preperitoneal space. A piece of left medium mesh was now introduced into the preperitoneal space. It was fixed medially to Isma's ligament and one very light tack out laterally to hold it in position. Attention was turned back towards the right side where again a right medium mesh was fixed to Isma's ligament and the tail once again lightly tacked on the lateral portion to hold it in place. At this point the preperitoneal space was inspected to ensure adequate hemostasis. We used an Endo Close to help hold up the upper edge of the mesh on the left side. The patient was now taken out of Trendelenburg and the preperitoneal space was gently deflated. We could see the peritoneal contents were rolling up on top of the mesh helping to anchor it in position. At this point the pneumoperitoneum was completely collapsed after having instilled 0.25% Marcaine into the preperitoneal space. The fascia at the umbilical trocar site was now approximated with nonabsorbable suture. The skin edges were brought together with a skin stapler. At the end of the procedure the patient was in a stable condition wheeled to the recovery room. Needle sponge instrument count were correct. No drains were placed. And the Hugo catheter had been removed. Complications: None Transferred to: Recovery Room Condition: Good
[2020-12-11] MEDS ORDERED: KETOROLAC 30 MG/ML INJ ONE (10:41)
[2020-12-11] MEDS ORDERED: HYDROCODONE/APAP 10/325 TAB ONE (12:17)
[2020-12-11 14:49] VITALS: BP 123/82; TEMP 97.6; O2SAT 97
== END 2020-12-11 14:40 | disposition home or self-care (01) ==
LOC: OR 06:34
PROVIDERS: ATTEND Surgery
PROC: 0YUA4JZ Supplement Bilateral Inguinal Region with Synthetic Substitute, Percutaneous Endoscopic Approach (ICD-10-PCS; principal; 2020-12-11 07:30)
DX: K40.20 Bilateral inguinal hernia, without obstruction or gangrene, not specified as recurrent (principal); Z20.822 Contact with and (suspected) exposure to COVID-19
CPT/HCPCS: 49650; U0003; J2704; J2250; J3010 ×2; J2710; J0690; J7120; J2405 ×2

== ENCOUNTER 2021-11-04 09:17 | Emergency (ER) | payer OTHER, SELFPAY ==
[2021-11-04] MEDS ORDERED: METOCLOPRAMIDE 10 MG/2mL INJ ONE (10:01)
[2021-11-04] MEDS ORDERED: ACETAMINOPHEN 325 MG TABLET ONE (10:01)
[2021-11-04] MEDS ORDERED: NA CHLORIDE 0.9% 1,000 ML ONE (10:02)
[2021-11-04] MEDS ORDERED: DIPHENHYDRAMINE 50 MG/ML VIAL ONE (10:02)
[2021-11-04] MEDS ORDERED: KETOROLAC 30 MG/ML INJ ONE (10:02)
--- NOTE | 2021-11-04 11:43 | EDPHYS ---
Physician Documentation [facility] Name: Jamie Cortes Age: 26 yrs Sex: Male : 1995 Arrival Date: 11/04/2021 Time: 09:21 Bed 4 Private MD: JEAN Physician Mahendra Garcia HPI: 11/04 09:30 This 26 yrs old Male presents to ER via Wheelchair with complaints of Fever, Body jmm Aches, Headache, Nausea. 09:30 Onset: The symptoms/episode began/occurred gradually, 1 day(s) ago. Modifying factors: jmm there are no obvious modifying factors. Associated signs and symptoms: Pertinent positives: cough. It is unknown whether or not the patient has had similar symptoms in the past. Historical: - Allergies: 09:38 No Known Allergies; iw - Home Meds: 09:38 None [Active]; iw - PMHx: 09:38 ADD/ADHD; Anxiety; iw - PSHx: 09:38 hernia; iw - Immunization history:: Client reports having NOT received the Covid vaccine. - Social history:: Smoking status: Patient denies any tobacco usage or history of. ROS: 09:30 Cardiovascular: Negative for chest pain, palpitations, and edema, Respiratory: Negative jmm for shortness of breath, cough, wheezing, and pleuritic chest pain. 09:30 Constitutional: Positive for body aches, chills. 09:30 Neuro: Positive for headache. 09:30 All other systems are negative. Exam: 09:30 Constitutional: This is a well developed, well nourished patient who is awake, alert, jmm and in no acute distress. Head/Face: atraumatic. Eyes: EOMI, no conjunctival erythema appreciated ENT: Moist Mucus Membranes Neck: Trachea midline, Supple Chest/axilla: Normal chest wall appearance and motion. Cardiovascular: Regular rate and rhythm. No edema appreciated Respiratory: Normal respirations, no respiratory distress appreciated Abdomen/GI: Non distended, soft Skin: General appearance color normal MS/ Extremity: Moves all extremities, no obvious deformities appreciated, no edema noted to the lower extremities Neuro: Awake and alert Psych: Behavior is normal, Mood is normal, Patient is cooperative and pleasant Vital Signs: 09:36 BP 135 / 90; Pulse 116; Resp 18 S; Temp 101.2; Pulse Ox 100% on R/A; Weight 97.52 kg; iw Height 5 ft. 8 in. (172.72 cm); Pain 8/10; 11:20 BP 109 / 66; Pulse 79; Resp 18 S; Temp 98.7(O); Pulse Ox 100% on R/A; aa5 09:36 Body Mass Index 32.69 (97.52 kg, 172.72 cm) iw MDM: 09:30 Patient medically screened. jennifer 11:40 Data reviewed: vital signs, nurses notes. Counseling: I had a detailed discussion with [facility] the patient and/or guardian regarding: the historical points, exam findings, and any diagnostic results supporting the discharge/admit diagnosis, lab results, the need for outpatient follow up, to return to the emergency department if symptoms worsen or persist or if there are any questions or concerns that arise at home. ED course: Patient is alert and non toxic in appearance in the ED. No signs of resp distress. Patient advised to follow up with pcp and otherwise given strict return precautions. Patient understood and agrees with the plan of care. . 11/04 09:37 Order name: SARS-COV-2 RT PCR (Document "Date of Onset" if Symptomatic); Complete Time: [facility] 11/04 09:37 Order name: Influenza Screen (a \\T\\ B); Complete Time: 10:30 [facility] 11/04 09:37 Order name: Strep; Complete Time: 10:20 [facility] 11/04 10:16 Order name: Throat Culture [facility] 11/04 09:37 Order name: Saline Lock; Complete Time: 10:12 [facility] Administered Medications: 10:03 Drug: NS 0.9% 1000 ml Route: IV; Rate: 1 bolus; Site: right antecubital; aa5 10:03 Drug: Reglan (metoCLOPramide) 20 mg Route: IVP; Site: right antecubital; aa5 10:03 Drug: Ketorolac 30 mg Route: IVP; Site: right antecubital; aa5 10:03 Drug: diphenhydrAMINE 12.5 mg Route: IVP; Site: right antecubital; aa5 10:03 Drug: Acetaminophen 650 mg Route: PO; aa5 Disposition Summary: 11/04/21 11:42 Discharge Ordered Location: Home [facility] Condition: Stable [facility] Diagnosis - Coronavirus infection, unspecified [facility] Followup: [facility] - With: Private Physician - When: 2 - 3 days - Reason: Recheck today's complaints, Continuance of care, Re-evaluation by your physician Discharge Instructions: - Discharge Summary Sheet damon - COVID-19 [facility] Forms: - Medication Reconciliation Form [facility] - Thank You Letter damon - Antibiotic Education jassm - Prescription Opioid Use jassm - Work release form iw Prescriptions: - PAXLOVID - take 1 application by ORAL route 2 times per day for 5 days; 1 packet; Refills: [facility] 0, Product Selection Permitted Signatures: Dispatcher [employer] Mahendra Jorge MD MD cha Mickail, Joel, PA PA jmm Williams, Irene, RN RN Ariela Vásquez RN RN aa5
--- NOTE | 2021-11-04 11:43 | ER ---
Nurse's Notes [facility] Name: Jamie Cortes Age: 26 yrs Sex: Male : 1995 Arrival Date: 11/04/2021 Time: 09:21 Bed 4 Private MD: Diagnosis: Coronavirus infection, unspecified Presentation: 11/04 09:36 Chief complaint: Patient states: started at 2 am with chills, body aches, back pain, iw headache , slight cough, fever, took tylenol at 0600. Coronavirus screen: Client presents with at least one sign or symptom that may indicate coronavirus-19. Standard/surgical mask placed on the client. Ebola Screen: Patient negative for fever greater than or equal to 101.5 degrees Fahrenheit, and additional compatible Ebola Virus Disease symptoms Patient denies exposure to infectious person. Patient denies travel to an Ebola-affected area in the 21 days before illness onset. No symptoms or risks identified at this time. Initial Sepsis Screen: Does the patient meet any 2 criteria? Does the patient have a suspected source of infection? No. Patient's initial sepsis screen is negative. Risk Assessment: Do you want to hurt yourself or someone else? Patient reports no desire to harm self or others. Onset of symptoms was November 04, 2021. 09:36 Method Of Arrival: Wheelchair iw 09:36 Acuity: DINA 3 iw Historical: - Allergies: 09:38 No Known Allergies; iw - Home Meds: 09:38 None [Active]; iw - PMHx: 09:38 ADD/ADHD; Anxiety; iw - PSHx: 09:38 hernia; iw - Immunization history:: Client reports having NOT received the Covid vaccine. - Social history:: Smoking status: Patient denies any tobacco usage or history of. Screenin:00 Abuse screen: Denies threats or abuse. Nutritional screening: No deficits noted. aa5 Tuberculosis screening: No symptoms or risk factors identified. Fall Risk None identified. Assessment: 09:50 General: Appears uncomfortable, Behavior is calm, cooperative, Reports chills for 0-12 aa5 hours, fever for 0-12 hours, feeling ill for 0-12 hours. Pain: Complains of pain in head and whole body Pain currently is 8 out of 10 on a pain scale. Quality of pain is described as aching, Pain began this morning Is continuous. Neuro: Level of Consciousness is awake, alert, obeys commands, Oriented to person, place, time, situation. Cardiovascular: Heart tones S1 S2 present Rhythm is regular. Respiratory: Reports cough Airway is patent Respiratory effort is even, unlabored, Respiratory pattern is regular, symmetrical, Breath sounds are clear bilaterally. GI: Abdomen is round non-distended, Bowel sounds present X 4 quads. Abd is soft and non tender X 4 quads. Reports nausea. : No signs and/or symptoms were reported regarding the genitourinary system. EENT: No signs and/or symptoms were reported regarding the EENT system. Derm: Skin is pink, warm \T\ dry. Musculoskeletal: Range of motion: intact in all extremities. 11:20 Reassessment: Patient is alert, oriented x 3, equal unlabored respirations, skin aa5 warm/dry/pink. Patient states feeling better. Vital Signs: 09:36 BP 135 / 90; Pulse 116; Resp 18 S; Temp 101.2; Pulse Ox 100% on R/A; Weight 97.52 kg; iw Height 5 ft. 8 in. (172.72 cm); Pain 8/10; 11:20 BP 109 / 66; Pulse 79; Resp 18 S; Temp 98.7(O); Pulse Ox 100% on R/A; aa5 09:36 Body Mass Index 32.69 (97.52 kg, 172.72 cm) iw ED Course: 09:21 Patient arrived in ED. ja2 09:22 Mando Pitts PA is PHCP. [facility] 09:22 Mahendra Garcia MD is Attending Physician. jm 09:35 Ariela Chanel, RN is Primary Nurse. aa5 09:37 Triage completed. iw 09:38 Arm band placed on. iw 09:50 Patient has correct armband on for positive identification. Bed in low position. Call aa5 light in reach. Side rails up X 1. 10:00 Inserted saline lock: 20 gauge in right antecubital area, using aseptic technique. aa5 12:08 No provider procedures requiring assistance completed. IV discontinued, intact, iw bleeding controlled, No redness/swelling at site. Pressure dressing applied. Administered Medications: 10:03 Drug: NS 0.9% 1000 ml Route: IV; Rate: 1 bolus; Site: right antecubital; aa5 10:03 Drug: Reglan (metoCLOPramide) 20 mg Route: IVP; Site: right antecubital; aa5 10:03 Drug: Ketorolac 30 mg Route: IVP; Site: right antecubital; aa5 10:03 Drug: diphenhydrAMINE 12.5 mg Route: IVP; Site: right antecubital; aa5 10:03 Drug: Acetaminophen 650 mg Route: PO; aa5 Medication: 12:08 VIS not applicable for this client. iw Outcome: 11:42 Discharge ordered by MD. jose 12:08 Discharged to home ambulatory, with family. iw 12:08 Condition: good 12:08 Discharge instructions given to patient, Instructed on discharge instructions, follow up and referral plans. medication usage, Demonstrated understanding of instructions, follow-up care, medications, Prescriptions given X 1. 12:09 Patient left the ED. iw Signatures: Mando Pitts PA PA jmm Williams, Irene, RN RN iw Calderon, Audri, RN RN aa Yareli Sandoval
[2021-11-04 12:18] VITALS: O2SAT 100
[2021-11-04 12:20] VITALS: BP 109/66; TEMP 98.7
== END 2021-11-04 12:09 | disposition home or self-care (01) ==
LOC: ER 09:17
DX: U07.1 COVID-19 (principal)
CPT/HCPCS: 87070; 87081; 87804; J1200; J2765; J7030; U0003

== ENCOUNTER 2022-12-11 18:27 | Emergency (ER) | payer BC, SELFPAY ==
--- OUTSIDE RECORDS SUMMARY | 2022-12-11 18:31 | XMS REPORT | Continuity of Care Document ---
:1995 Author Organization [facility] t Address [address] [place] [address] Care Team Providers Name Role Phone GINA RASMUSSEN Attending Clinician Unavailable Problems This patient has no known problems. Allergies, Adverse Reactions, Alerts This patient has no known allergies or adverse reactions. Medications This patient has no known medications. Procedures This patient has no known procedures. Encounters Start End Encounter Admission Attending Care Care Encounter Source Date/Time Date/Time Type Type Clinicians Facility Department ID 2020-11-19 2020-11-19 Outpatient SANJUANITA RASMUSSEN [id number] [address] 00:00:00 00:00:00 GINA peterson Results This patient has no known results.
--- NOTE | 2022-12-11 19:08 | RAD REPORT ---
EXAM DESCRIPTION: CT - Stone Protocol - 12/11/2022 6:57 pm CLINICAL HISTORY: Flank pain. FLANK PAIN COMPARISON: <Comparisons> TECHNIQUE: Axial images were obtained without oral or IV contrast. Lack of contrast limits solid org an and vascular assessment. The [id number] spans the entirety of the system partially obscuring uppermost abdomen and lung bases. Coronal reformatted images were obtained and reviewed. All CT scans are performed using dose optimization technique as appropriate and may include automated exposure control or mA/KV adjustment according to patient size. FINDINGS: The lower lung lundberg are clear. Imaged portions of the liver and spleen show no suspicious findings on non-contrast imaging. The panc reas and adrenal glands are normal. No pathologic lymphadenopathy in the abdomen or pelvis. There are small stones in the superior calyx left kidney without hydronephrosis. No right-sided stone or hydronephrosis. No bowel obstruction, free air, free fluid or abscess. Normal appendix noted.Mild colonic diverticulo sis without diverticulitis. No significant bony abnormality. IMPRESSION: Superior left renal caliceal stones without hydronephrosis.
[2022-12-11 19:27] LABS: Absolute Lymphocytes (CBC) 2.5 K/uL (0.7-4.9); Hematocrit 47.5 % (39.6-49.0); Lymphocytes % 25.7 % (15.3-44.8); MCV 84.6 fL (80-100); MPV 7.7 fL (7.6-11.3); RBC Red Blood Cell Count 5.61 M/uL (4.33-5.43)
[2022-12-11 19:32] LABS: Specific Gravity >= 1.030 (1.005-1.030); Urine Bilirubin Negative (Negative); Urine Blood Trace-lysed (Negative); Urine Clarity Clear (Clear); Urine Glucose Negative (Negative); Urine Protein Negative (Negative); Urine Urobilinogen 0.2 mg/dL (0.2-1.0); Urine pH 5.5 (5.0-7.0)
[2022-12-11 19:33] LABS: Potassium 3.8 mEq/L (3.5-5.1)
[2022-12-11 19:36] LABS: Bilirubin Total 0.4 mg/dL (0.2-1.0); Protein, Total 7.7 g/dL (6.4-8.2)
[2022-12-11 19:40] LABS: Urine Color DK YELLOW (Yellow)
[2022-12-11 19:41] LABS: Calcium Oxalate Crystals- Ur Few /HPF (None Seen); Urine Bacteria None Seen /HPF (<20); Urine Crystals Unidentified Few /HPF (None Seen); Urine Mucus Slight /HPF (None Seen)
--- NOTE | 2022-12-11 19:43 | EDPHYS ---
Physician Documentation [facility] Name: Jamie Cortes Age: 27 yrs Sex: Male : 1995 Arrival Date: 12/11/2022 Time: 18:27 Bed 13 Private MD: ED Physician Neto Rene HPI: 12/11 19:01 This 27 yrs old Male presents to ER via Unassigned with complaints of Urinary Problem, kb Low Back Pain, Side Pain, Nausea. 19:01 The patient complains of pain in the left flank and right flank. The pain radiates to kb the abdomen. Onset: The symptoms/episode began/occurred 2 week(s) ago, and became worse. Modifying factors: The symptoms are alleviated by nothing. the symptoms are aggravated by nothing. Associated signs and symptoms: Pertinent positives: dysuria, urinary frequency. Severity of pain: At its worst the pain was moderate in the emergency department the pain is unchanged. The patient has not experienced similar symptoms in the past. The patient has not recently seen a physician. Historical: - Allergies: 19:15 No Known Allergies; dd1 - Home Meds: 19:15 None [Active]; dd1 - PMHx: 19:15 Anxiety; ADD/ADHD; dd1 - PSHx: 19:15 hernia; dd1 - Immunization history:: Adult Immunizations not up to date. - Social history:: Smoking status: Patient denies any tobacco usage or history of. ROS: 19:01 Constitutional: Negative for fever, chills, and weight loss. kb 19:01 Abdomen/GI: Positive for abdominal pain. 19:01 Back: Positive for flank pain, bilaterally. 19:01 : Positive for flank pain, urinary frequency, small amounts, burning with urination, difficulty urinating. 19:01 All other systems are negative. Exam: 19:01 Constitutional: This is a well developed, well nourished patient who is awake, alert, kb and in no acute distress. Head/Face: Normocephalic, atraumatic. ENT: Moist Mucous membranes Cardiovascular: Regular rate and rhythm with a normal S1 and S2. No gallops, murmurs, or rubs. No pulse deficits. Respiratory: Respirations even and unlabored. No increased work of breathing. Talking in full sentences Abdomen/GI: Soft, non-tender. No distention Back: No spinal tenderness. No costovertebral tenderness. Full range of motion. Skin: Warm, dry with normal turgor. Normal color. MS/ Extremity: Pulses equal, no cyanosis. Neurovascular intact. Full, normal range of motion. Neuro: Awake and alert, GCS 15, oriented to person, place, time, and situation. Moves all extremities. Normal gait. Vital Signs: 19:13 BP 136 / 91; Pulse 78; Resp 16; Temp 98.9; Pulse Ox 98% ; Weight 81.65 kg; Height 5 ft. dd1 10 in. ; Pain 6/10; 19:25 BP 125 / 89; Pulse 78; Resp 16; Temp 98.3; Pulse Ox 99% ; Pain 4/10; fu 19:13 Body Mass Index 25.83 (81.65 kg, 177.8 cm) dd1 19:13 Pain Scale: Adult dd1 19:25 Pain Scale: Adult fu MDM: 18:33 Patient medically screened. kb 19:09 Differential diagnosis: nephrolithiasis, pyelonephritis, UTI. Data reviewed: vital kb signs, nurses notes. 19:37 Counseling: I had a detailed discussion with the patient and/or guardian regarding: the kb historical points, exam findings, and any diagnostic results supporting the discharge/admit diagnosis, lab results, radiology results, the need for outpatient follow up, a family practitioner, to return to the emergency department if symptoms worsen or persist or if there are any questions or concerns that arise at home. 12/11 18:40 Order name: CBC with Diff; Complete Time: 19:36 kb 12/11 18:40 Order name: CMP; Complete Time: 19:36 kb 12/11 18:40 Order name: Lipase; Complete Time: 19:36 kb 12/11 19:32 Order name: Urinalysis w/ reflexes; Complete Time: 19:43 EDMS 12/11 19:42 Order name: Urine Microscopic Only; Complete Time: 19:43 EDMS 12/11 18:40 Order name: CT Stone Protocol; Complete Time: 19:32 kb 12/11 18:40 Order name: IV Saline Lock; Complete Time: 19:14 kb 12/11 18:40 Order name: Labs collected and sent; Complete Time: 19:14 kb Administered Medications: No medications were administered Disposition Summary: 12/11/22 19:42 Discharge Ordered Location: Home kb Condition: Stable kb Diagnosis - Flank Pain kb Followup: kb - With: Emergency Department - When: As needed - Reason: Worsening of condition Followup: kb - With: Private Physician - When: 2 - 3 days - Reason: Recheck today's complaints, Continuance of care, Re-evaluation by your physician Followup: kb - With: Flavio Wallace MD - When: 2 - 3 days - Reason: Recheck today's complaints Discharge Instructions: - Discharge Summary Sheet kb - Flank Pain, Adult, [id number] kb Forms: - Medication Reconciliation Form kb - Thank You Letter kb - Antibiotic Education kb - Prescription Opioid Use kb - Patient Portal Instructions kb Signatures: Dispatcher [employer] EDQuyen Orellana, TOMMY-C TOMMY-Johnny Colby, RN RN dd1 Corrections: (The following items were deleted from the chart) 19:43 18:41 Urinalysis+U.LAB.BRZ ordered. EDIA EDMS
--- NOTE | 2022-12-11 19:43 | ER ---
Nurse's Notes [facility] Name: Jamie Cortes Age: 27 yrs Sex: Male : 1995 Arrival Date: 12/11/2022 Time: 18:27 Bed 13 Private MD: Diagnosis: Flank Pain Presentation: 12/11 19:13 Chief complaint: Patient states: L FLANK PAIN, DYSURIA. Coronavirus screen: At this dd1 time, the client does not indicate any symptoms associated with coronavirus-19. Ebola Screen: No symptoms or risks identified at this time. Initial Sepsis Screen: Does the patient meet any 2 criteria? No. Patient's initial sepsis screen is negative. Does the patient have a suspected source of infection? Yes: Acute abdominal pain. Risk Assessment: Do you want to hurt yourself or someone else? Patient reports no desire to harm self or others. Onset of symptoms was November 17, 2022. 19:13 Method Of Arrival: Ambulatory dd1 19:13 Acuity: DINA 3 dd1 Triage Assessment: 19:15 General: Appears in no apparent distress. comfortable, Behavior is calm, cooperative. dd1 Pain: Complains of pain in abdomen. GI: No deficits noted. Abdomen is flat, non-distended, Reports lower abdominal pain, cramping. Historical: - Allergies: 19:15 No Known Allergies; dd1 - Home Meds: 19:15 None [Active]; dd1 - PMHx: 19:15 Anxiety; ADD/ADHD; dd1 - PSHx: 19:15 hernia; dd1 - Immunization history:: Adult Immunizations not up to date. - Social history:: Smoking status: Patient denies any tobacco usage or history of. Screenin:30 [facility] ED Fall Risk Assessment (Adult) History of falling in the last 3 months, fu including since admission No falls in past 3 months (0 pts). Abuse screen: Denies threats or abuse. Nutritional screening: No deficits noted. Tuberculosis screening: No symptoms or risk factors identified. Assessment: 19:10 General: Appears in no apparent distress. Behavior is calm, cooperative, appropriate fu for age, Denies fever. Pain: Complains of pain in abdomen and right flank and left flank Pain does not radiate. Pain currently is 4 out of 10 on a pain scale. Quality of pain is described as aching, Pain began. Neuro: Level of Consciousness is awake, alert, obeys commands, Oriented to person, place, time, situation, Moves all extremities. Gait is steady, Speech is normal. GI: Abdomen is round Bowel sounds present X 4 quads. : Reports pain flank(s). Vital Signs: 19:13 BP 136 / 91; Pulse 78; Resp 16; Temp 98.9; Pulse Ox 98% ; Weight 81.65 kg; Height 5 ft. dd1 10 in. ; Pain 6/10; 19:25 BP 125 / 89; Pulse 78; Resp 16; Temp 98.3; Pulse Ox 99% ; Pain 4/10; fu 19:13 Body Mass Index 25.83 (81.65 kg, 177.8 cm) dd1 19:13 Pain Scale: Adult dd1 19:25 Pain Scale: Adult fu ED Course: 18:31 Patient arrived in ED. mg5 18:33 Quyen Reese FNP-C [facility] kb 18:33 Neto Rene MD is Attending Physician. kb 18:59 CT Stone Protocol In Process Unspecified. EDMS 19:00 Report given to DOUGLAS Edouard. kc6 19:04 Javan Courtney, DOUGLAS is Primary Nurse. fu 19:14 CBC with Diff Sent. mm9 19:14 CMP Sent. mm9 19:14 Lipase Sent. mm9 19:15 Triage completed. dd1 19:15 Patient has correct armband on for positive identification. Placed in gown. Bed in low mm9 position. Call light in reach. Side rails up X 1. Adult w/ patient. Warm blanket given. oracle architect on. Pulse ox on. 19:15 Arm band placed on. dd1 19:15 Initial lab(s) drawn, by nc, sent to lab. Inserted saline lock: 20 gauge in left mm9 antecubital area, using aseptic technique. 19:42 Flavio Wallace MD is Referral Physician. kb 20:09 No provider procedures requiring assistance completed. IV discontinued, bleeding fu controlled, Pressure dressing applied. Administered Medications: No medications were administered Medication: 20:00 VIS not applicable for this client. fu Outcome: 19:42 Discharge ordered by . kb 20:09 Discharged to home ambulatory, with family. fu 20:09 Condition: stable 20:09 Discharge instructions given to patient, Instructed on discharge instructions, follow up and referral plans. Demonstrated understanding of instructions, follow-up care, Prescriptions given X 0 20:10 Patient left the ED. Signatures: Dispatcher [employer] EDQuyen Orellana FNP-C FNP-Javan Holly RN RN fu Campbell, Kaitlyn, RN RN [id number] Rosario Arriola [facility] Johnny Loza RN RN dd1 Corrections: (The following items were deleted from the chart) 19:43 19:16 Urinalysis+U.LAB.BRZ drawn and sent. EDMS
[2022-12-11 20:18] VITALS: BP 136/91; TEMP 98.9; O2SAT 98
== END 2022-12-11 20:10 | disposition home or self-care (01) ==
LOC: ER 18:27
DX: R10.9 Unspecified abdominal pain (principal); R30.0 Dysuria
CPT/HCPCS: 36415; 74176; 76377; 80053; 81003; 81015; 83690; 85025; 99284